=== PATIENT | male | born 1955 | race Caucasian/White ===

== ENCOUNTER → 2023-06-13 09:41 | Outpatient (BNVA) | payer MEDICARE, MEDICAID, SELFPAY | PROVIDERS: PCP Family Medicine; Visit Provider Emergency Medicine | DX: M16.0 Bilateral primary osteoarthritis of hip (principal); M79.605 Pain in left leg; V86.99XA Unspecified occupant of other special all-terrain or other off-road motor vehicle injured in nontraffic accident, initial encounter; M25.462 Effusion, left knee | CPT/HCPCS: 72170; 73552; 73562 ==

== ENCOUNTER 2023-06-13 11:43 | Emergency (ER) | payer MEDICARE, MEDICAID, SELFPAY ==
--- NOTE | 2023-06-13 11:45 | USCV_ITS ---
Ramon Martinez Age: 67 Gender: M : 1955 Exam Date: 06/13/2023 12:11 Ordering Phys: Samantha Lynch Technologist: Ezequiel Harper Exam Location: [facility] – [place], [place]_ Indication: swelling PROCEDURES: Venous duplex imaging was performed in only the left lower extremity. The following venous structures were evaluated: common femoral vein, profunda vein, proximal portion of the greater saphenous vein, superficial femoral vein, and the popliteal vein. In addition, the posterior tibial and peroneal trunk were evaluated. Serial compression, augmentation maneuvers, and spectral Doppler flow evaluation were performed. FINDINGS: Normal 2-D Doppler and augmentation and compressibility throughout the lower extremity venous structures. Additional imaging through the proximal calf veins also reveals no thrombus. Limited evaluation of the greater saphenous vein is patent with no thrombus. CONCLUSIONS No evidence of left lower extremity DVT. Silvino Hernandez MD (Electronically Signed) Final Date: 13 June 2023 15:29 S
[2023-06-13 11:47] VITALS: BP 204/95; PULSE 64; RESP 18; TEMP 36.8; O2SAT 96; BMI 34.5
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
== END 2023-06-13 12:47 | disposition home or self-care (01) ==
PROVIDERS: Emergency Provider Physician Assistant; PCP Family Medicine
DX: S89.92XA Unspecified injury of left lower leg, initial encounter (principal); R60.0 Localized edema; V86.95XA Unspecified occupant of 3- or 4- wheeled all-terrain vehicle (ATV) injured in nontraffic accident, initial encounter; M79.605 Pain in left leg; M16.0 Bilateral primary osteoarthritis of hip; V86.99XA Unspecified occupant of other special all-terrain or other off-road motor vehicle injured in nontraffic accident, initial encounter; M25.462 Effusion, left knee
CPT/HCPCS: 72170; 73552; 73562; 93971; 99284